=== PATIENT | female | born 1950 | race Caucasian/White ===

== ENCOUNTER 2016-11-29 12:56 | Emergency (ER) | payer MEDICARE, OTHER ==
[2016-11-29 13:12] VITALS: RESP 20; TEMP 98; O2SAT 100
--- NOTE | 2016-11-29 13:34 | C.PDOC ---
History Of Present Illness 66 y/o female presents to the ED for suture removal from the right side of her forehead. Patient states she has sutures placed approx1 month ago at [facility]. Patient was under the impression that the sutures would dissolve on their own and did not follow up regarding removal. Patient denies fever, chills, discharge, or pain to the affected site. Time Seen by Provider: 11/29/16 13:08 Chief Complaint (Nursing): Suture/Staple Removal History Per: Patient History/Exam Limitations: no limitations Onset/Duration Of Symptoms: Days Ago Current Symptoms Are (Timing): Still Present Location Of Injury: Right: Face (forehead ) Quality Of Symptoms: denies: Painful, Itching, Swollen, Draining Additional History Per: Patient Past Medical History Reviewed: Historical Data, Nursing Documentation, Vital Signs Vital Signs: Last Vital Signs Temp 98 F 11/29/16 13:10 Pulse 66 11/29/16 14:28 Resp 20 11/29/16 14:28 BP 107/65 11/29/16 14:28 Pulse Ox 100 12/02/16 16:10 - Medical History PMH: HTN, Hypercholesterolemia Surgical History: No Surg Hx - [facility] Procedures CLOSURE SKIN & SUBCUTANEOUS NEC (08/21/12) TETANUS TOXOID ADMINIST (08/21/12) Family History: States: Unknown Family Hx - Social History Hx Tobacco Use: No Hx Alcohol Use: No Hx Substance Use: No - Immunization History Hx Tetanus Toxoid Vaccination: No Hx Influenza Vaccination: No Hx Pneumococcal Vaccination: No Review Of Systems Constitutional: Negative for: Fever, Chills Skin: Positive for: Other (+right forehead suture removal. no pain or discharge at site ) Physical Exam - Physical Exam Appears: Well, Non-toxic, No Acute Distress Skin: Normal Color, Warm, Dry, No Rash Head: Atraumatic, Normacephalic, Other (right forehead: seven vertical sutures intact, partially embedded under skin, well healed ) Eye(s): bilateral: Normal Inspection Oral Mucosa: Moist Cardiovascular: Rhythm Regular Respiratory: Normal Breath Sounds, No Rales, No Rhonchi, No Wheezing Extremity: Normal ROM Extremity: Bilateral: Atraumatic, Normal Color And Temperature, Normal ROM Neurological/Psych: Oriented x3 Gait: Steady ED Course And Treatment O2 Sat by Pulse Oximetry: 100 (on RA) Pulse Ox Interpretation: Normal Progress Note: Seven sutures removed from right forehead by me- patient tolerated well. Patient instructed to follow up with PMD/clinic in 1-2 days, and understands she should return to ED if she develops any concerning symptoms. Reevaluation Time: 14:20 Reassessment Condition: Improved Disposition Counseled Patient/Family Regarding: Diagnosis, Need For Followup - Disposition Referrals: Gabriella Cardoso MD [Medical Doctor] - Disposition: HOME/ ROUTINE Disposition Time: 14:25 Condition: STABLE Additional Instructions: SEGUIMIENTO CON CURTIS MDICO EN 1-2 VALLADARES VUELVA A LA JESSICA DE EMERGENCIA SI TIENE SNTOMAS DE PREOCUPACIN Instructions: Stitches Removal (ED) Forms: Rep (Japanese) Print Language: YAKUT - POA Present On Arrival: None - Clinical Impression Clinical Impression: Removal of suture - Scribe Statement The provider has reviewed the documentation as recorded by the Scribe (Nelida Iverson) Provider Attestation: All medical record entries made by the Scribe were at my direction and personally dictated by me. I have reviewed the chart and agree that the record accurately reflects my personal performance of the history, physical exam, medical decision making, and the department course for this patient. I have also personally directed, reviewed, and agree with the discharge instructions and disposition.
[2016-11-29 14:29] VITALS: BP 107/65; PULSE 66
== END 2016-11-29 14:29 | disposition home or self-care (01) ==
LOC: C.ER 12:56
DX: Z48.02 Encounter for removal of sutures (principal)

== ENCOUNTER 2018-04-26 14:36 | Emergency (ER) | payer MEDICARE ==
--- NOTE | 2018-04-26 15:02 | C.PDOC ---
History Of Present Illness 67 y/o female with a PMHx of HTN, HLD, and MT presents with complaints of neck pain, near right paracervical area, onset today. Patient notes she woke up with the pain after sleeping in an odd position. Pain worsens with movement of neck. Otherwise she denies any focal deficits, chest pain, SOB, fevers, chills, night sweats, headache, cough, URI symptoms, nausea, or vomiting. Time Seen by Provider: 04/26/18 15:02 Chief Complaint (Nursing): Headache History Per: Patient History/Exam Limitations: no limitations Onset/Duration Of Symptoms: Hrs Current Symptoms Are (Timing): Still Present Past Medical History Reviewed: Historical Data, Nursing Documentation, Vital Signs Vital Signs: Last Vital Signs Temp 97.5 F L 04/26/18 14:53 Pulse 63 04/26/18 14:53 Resp 18 04/26/18 14:53 BP 117/73 04/26/18 14:53 Pulse Ox 100 04/26/18 14:53 - Medical History PMH: HTN, Hypercholesterolemia Other PMH: MT - [facility] Procedures CLOSURE SKIN & SUBCUTANEOUS NEC (08/21/12) TETANUS TOXOID ADMINIST (08/21/12) Family History: States: Unknown Family Hx - Social History Hx Tobacco Use: No Hx Alcohol Use: No Hx Substance Use: No - Immunization History Hx Tetanus Toxoid Vaccination: No Hx Influenza Vaccination: No Hx Pneumococcal Vaccination: No Review Of Systems Constitutional: Negative for: Fever, Chills, Sweats Eyes: Negative for: Vision Change ENT: Negative for: Nose Congestion Cardiovascular: Negative for: Chest Pain Respiratory: Negative for: Cough, Shortness of Breath Gastrointestinal: Negative for: Nausea, Vomiting, Abdominal Pain Musculoskeletal: Positive for: Neck Pain. Negative for: Back Pain Skin: Negative for: Rash Neurological: Negative for: Weakness, Numbness, Change in Speech, Headache, Dizziness Physical Exam - Physical Exam Appears: Non-toxic, No Acute Distress Skin: Warm, Dry Head: Normacephalic Eye(s): bilateral: Normal Inspection, PERRL, EOMI Oral Mucosa: Moist Neck: Trachea Midline, No Midline Cervical Tenderness, Paracervical Tenderness (right-sided), Supple, Other (No meningeal signs- negative kernig's and brudzinskis) Chest: Symmetrical Cardiovascular: Rhythm Regular, No Friction Rub Respiratory: No Rales, No Rhonchi, No Wheezing Gastrointestinal/Abdominal: Soft, No Tenderness, No Distention Extremity: Bilateral: Normal Color And Temperature Pulses: Left Dorsalis Pedis: Normal, Right Dorsalis Pedis: Normal Neurological/Psych: Oriented x3 Gait: Steady ED Course And Treatment O2 Sat by Pulse Oximetry: 100 (RA) Pulse Ox Interpretation: Normal Medical Decision Making Medical Decision Making: Impression: Neck pain, msk Plan: - 5 mg PO Flexeril - CT Cervical Spine 1646 remains w/ out meningeal signs. No trauma or fall per pt. No FND Pt in NAD no cp informed pt regarding c6 foraminal stenosis and thyroid findings, pt notes she will f/u clear for d/c home with return indications and f/u. Disposition - Disposition Referrals: Gabriella Cardoso MD [Medical Doctor] - Amy Choi MD [Staff Provider] - [facility] [facility] [Outside] [employer] [facility] [Outside] Disposition: HOME/ ROUTINE Disposition Time: 16:46 Condition: GOOD Additional Instructions: FOLLOW UP WITH YOUR DOCTOR FOR POSSIBLE ULTRASOUND OF YOUR THYROID ALSO FOLLOW UP WITH ORTHOPEDICS TO TAKE A LOOK AT YOUR NECK JOSE LUIS SCHMIDT, thank you for letting us take care of you today. Your provider was Chava Pendleton and you were treated for NECK PAIN. The emergency medical care you received today was directed at your acute symptoms. If you were prescribed any medication, please fill it and take as directed. It may take several days for your symptoms to resolve. Return to the Emergency Department if your symptoms worsen, do not improve, or if you have any other problems. Please contact your doctor or call one of the physicians/clinics you have been referred to that are listed on the Patient Visit Information form that is included in your discharge packet. Bring any paperwork you were given at discharge with you along with any medications you are taking to your follow up visit. Our treatment cannot replace ongoing medical care by a primary care provider outside of the emergency department. Thank you for allowing the [facility] team to be part of your care today. If you had an X-Ray or CT scan: A Radiologist will review the ED reading if any change in treatment is needed we will contact you. If you had a blood, urine, or wound culture: It will take several days for the results, if any change in treatment is needed we will contact you. If you had an STI test: It will take 48 hours for the results. Please call after 1 week if you have not heard back. Instructions: Muscle Strain (DC), Cervical Muscle Strain Forms: [employer] (Nepali) Print Language: GHANAIAN - Clinical Impression Clinical Impression: Cervical muscle strain - Scribe Statement The provider has reviewed the documentation as recorded by the Davide Rosas Provider Attestation: All medical record entries made by the Davide were at my direction and personally dictated by me. I have reviewed the chart and agree that the record accurately reflects my personal performance of the history, physical exam, medical decision making, and the department course for this patient. I have also personally directed, reviewed, and agree with the discharge instructions and disposition.
--- NOTE | 2018-04-26 16:25 | CT ---
Date of service: 04/26/2018 PROCEDURE: CT Cervical Spine without contrast HISTORY: R neck pain COMPARISON: Cervical spine CT without contrast 04/18/2012. TECHNIQUE: Axial computed tomography images were obtained of the cervical spine without the use of intravenous contrast. Coronal and sagittal reformatted images were created and reviewed. Radiation dose: Total exam DLP = 312.88 mGy-cm. This CT exam was performed using one or more of the following dose reduction techniques: Automated exposure control, adjustment of the mA and/or kV according to patient size, and/or use of iterative reconstruction technique. FINDINGS: VERTEBRAE: No fracture. Normal alignment. No destructive bony lesion. DISCS/SPINAL CANAL/NEURAL FORAMINA: No bony central stenosis identified. There is a [id number] degenerative neural foraminal stenosis at the right C6 root foramen. Remaining neural foramina widely patent. PARASPINAL SOFT TISSUES: Unremarkable. OTHER FINDINGS: Heterogeneous density is noted in the thyroid gland without overt mass appreciable. Follow-up ultrasound of the thyroid gland may be useful for added characterization. IMPRESSION: No fracture or spondylolisthesis appreciated. 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 Mildly inhomogeneous density is seen in the bilateral thyroid lobes for which thyroid ultrasound can be utilized for follow-up when feasible.
[2018-04-26 16:53] VITALS: BP 109/69; PULSE 60; RESP 16; TEMP 98.1
[2018-04-27 15:37] VITALS: O2SAT 100
== END 2018-04-26 16:59 | disposition home or self-care (01) ==
LOC: C.ER 14:36
DX: S16.1XXA Strain of muscle, fascia and tendon at neck level, initial encounter (principal); X58.XXXA Exposure to other specified factors, initial encounter; I10 Essential (primary) hypertension; E78.00 Pure hypercholesterolemia, unspecified; E78.5 Hyperlipidemia, unspecified; I25.2 Old myocardial infarction